=== PATIENT | male | born 1945 | race African-American/Black ===

== ENCOUNTER 2018-05-23 00:28 | Inpatient (IN) ==
[2018-05-23 01:06] LABS: Basophils % 0.4 % (0.0-0.8); Eosinophils # 0.1 10*3/uL (0.0-0.87); Eosinophils % 1.3 % (0.00-10.9); Hematocrit 36.7 VOL% (42.0-52.0); Hemoglobin 11.9 GM/DL (14.0-18.0); Immature Granulocytes % 0.4 %; Immature Granulocytes Absolute 0.02 #; Lymphocytes # 0.9 10*3/uL (1.4-4.0); Lymphocytes % 15.7 % (21.2-54.2); Mean Corpuscular HGB Conc 32.4 GM/DL (32-36); Mean Corpuscular Hemoglobin 31 PG (27-34); Mean Corpuscular Volume 96.1 FL (87-102); Mean Platelet Volume 10.4 FL (9.6-12.0); Monocytes # 0.4 10*3/uL (0.11-0.8); Monocytes % 6.9 % (1.7-12.7); Neutrophils # 4.2 10*3/uL (1.4-7.4); Neutrophils % 75.3 % (38.7-73.9); Platelet Count 164 T/CUMM (130-400); Red Blood Count 3.82 MC/CUMM (3.8-5.5); Red Cell Distribution Width 13.6 % (9.3-17.3); White Blood Count 5.5 T/CUMM (4-12)
[2018-05-23 01:30] LABS: Albumin 3.6 G/DL (3.4-5.0); Bilirubin,Total 0.8 MG/DL (0.2-1.0); Calcium 8.6 MG/DL (8.5-10.1); Potassium 3.9 MMOL/L (3.5-5.1); Total Protein 7.1 G/DL (6.4-8.3)
[2018-05-23] MEDS ORDERED: hydrALAZINE 20 MG/1 ML VIAL IV STA ×2 (01:39→02:52)
[2018-05-23] MEDS ORDERED: LABETALOL 20 MG/4 ML SYRINGE IV STA (01:40)
[2018-05-23] MEDS ORDERED: MORPHINE 4 MG/1 ML VIAL IV PRN (05:20)
[2018-05-23] MEDS ORDERED: hydrALAZINE 20 MG/1 ML VIAL IV PRN (05:20)
[2018-05-23] MEDS ORDERED: ACETAMINOPHEN 325 MG TABLET PO PRN (05:20)
[2018-05-23] MEDS ORDERED: traMADol 50 MG TABLET PO PRN (05:20)
[2018-05-23] MEDS ORDERED: ONDANSETRON 4 MG/2 ML VIAL IV PRN (05:20)
[2018-05-23] MEDS ORDERED: NITROGLYCERIN SL 0.4 MG TABLET SL PRN (05:20)
[2018-05-23 08:06] LABS: Thyroid Stimulating Hormone 3.76 uIU/ml (0.358-3.74)
[2018-05-23] MEDS: FUROSEMIDE 40 MG/4 ML VIAL IV SCH ×2 (08:47→15:59)
[2018-05-23] MEDS: CARVEDILOL 25 MG TABLET PO SCH ×2 (08:47→15:59)
[2018-05-23] MEDS: LISINOPRIL 20 MG TABLET PO SCH (08:47)
[2018-05-23] MEDS: ASPIRIN CHEW 81 MG TABLET PO SCH (08:48)
[2018-05-23] MEDS: ENOXAPARIN 40 MG/0.4 ML SYRINGE SUBCUT SCH (08:48)
[2018-05-23] MEDS: POTASSIUM CHLORIDE 20 MEQ TABLET PO SCH (08:48)
[2018-05-23] MEDS: SPIRONOLACTONE 25 MG TABLET PO SCH (08:48)
[2018-05-23] MEDS ORDERED: ATORVASTATIN 40 MG TABLET PO SCH (21:00)
[2018-05-24 04:13] LABS: Basophils % 0.2 % (0.0-0.8); Eosinophils # 0.1 10*3/uL (0.0-0.87); Eosinophils % 1.7 % (0.00-10.9); Hemoglobin 12.6 GM/DL (14.0-18.0); Immature Granulocytes % 0.2 %; Immature Granulocytes Absolute 0.01 #; Lymphocytes # 1.2 10*3/uL (1.4-4.0); Lymphocytes % 25.7 % (21.2-54.2); Mean Corpuscular HGB Conc 33.2 GM/DL (32-36); Mean Corpuscular Hemoglobin 31 PG (27-34); Mean Corpuscular Volume 93.1 FL (87-102); Mean Platelet Volume 10.6 FL (9.6-12.0); Monocytes # 0.3 10*3/uL (0.11-0.8); Monocytes % 6.7 % (1.7-12.7); Neutrophils # 3.1 10*3/uL (1.4-7.4); Neutrophils % 65.5 % (38.7-73.9); Platelet Count 174 T/CUMM (130-400); Red Blood Count 4.08 MC/CUMM (3.8-5.5); Red Cell Distribution Width 13.8 % (9.3-17.3); White Blood Count 4.8 T/CUMM (4-12)
[2018-05-24 04:35] LABS: Calcium 8.9 MG/DL (8.5-10.1); Osmolality,Calculated 284.1 MOS/KG (273-304); Potassium 3.5 MMOL/L (3.5-5.1)
[2018-05-24 04:39] LABS: Risk Ratio 4.25; VLDL CHOLESTEROL 24.2 MG/DL
[2018-05-24] MEDS: ASPIRIN CHEW 81 MG TABLET PO SCH (08:12)
[2018-05-24] MEDS: FUROSEMIDE 40 MG/4 ML VIAL IV SCH ×2 (08:12→16:50)
[2018-05-24] MEDS: LISINOPRIL 20 MG TABLET PO SCH (08:12)
[2018-05-24] MEDS: CARVEDILOL 25 MG TABLET PO SCH ×2 (08:12→16:50)
[2018-05-24] MEDS: ENOXAPARIN 40 MG/0.4 ML SYRINGE SUBCUT SCH (08:12)
[2018-05-24] MEDS: POTASSIUM CHLORIDE 20 MEQ TABLET PO SCH (08:12)
[2018-05-24] MEDS: SPIRONOLACTONE 25 MG TABLET PO SCH (08:12)
[2018-05-24] MEDS ORDERED: POLYETHYLENE GLYCOL POWDER 17 GM PACK PO PRN (09:57)
[2018-05-24] MEDS: DOCUSATE SODIUM 100 MG CAPSULE PO SCH ×2 (11:34→20:18)
[2018-05-24] MEDS: amLODIPine 5 MG TABLET PO SCH (13:55)
[2018-05-24] MEDS: hydroCHLOROthiazide 25 MG TABLET PO SCH (13:55)
[2018-05-25] MEDS: amLODIPine 5 MG TABLET PO SCH (08:52)
[2018-05-25] MEDS: LISINOPRIL 20 MG TABLET PO SCH (08:52)
[2018-05-25] MEDS: SPIRONOLACTONE 25 MG TABLET PO SCH (08:52)
[2018-05-25] MEDS: DOCUSATE SODIUM 100 MG CAPSULE PO SCH ×2 (08:53→20:03)
[2018-05-25] MEDS: ASPIRIN CHEW 81 MG TABLET PO SCH (08:53)
[2018-05-25] MEDS: FUROSEMIDE 40 MG/4 ML VIAL IV SCH ×2 (08:53→16:23)
[2018-05-25] MEDS: ENOXAPARIN 40 MG/0.4 ML SYRINGE SUBCUT SCH (08:53)
[2018-05-25] MEDS: CARVEDILOL 25 MG TABLET PO SCH ×2 (08:53→16:22)
[2018-05-25] MEDS: POTASSIUM CHLORIDE 20 MEQ TABLET PO SCH (08:53)
[2018-05-25] MEDS: hydroCHLOROthiazide 25 MG TABLET PO SCH (08:56)
[2018-05-25] MEDS: ALBUTEROL/IPRATROPIUM 3 ML NEB RESP TX SCH ×2 (14:01→19:04)
[2018-05-26] MEDS: ALBUTEROL/IPRATROPIUM 3 ML NEB RESP TX SCH ×3 (00:02→13:10)
[2018-05-26] MEDS: DOCUSATE SODIUM 100 MG CAPSULE PO SCH (09:04)
[2018-05-26] MEDS: amLODIPine 5 MG TABLET PO SCH (09:04)
[2018-05-26] MEDS: hydroCHLOROthiazide 25 MG TABLET PO SCH (09:04)
[2018-05-26] MEDS: CARVEDILOL 25 MG TABLET PO SCH (09:04)
[2018-05-26] MEDS: SPIRONOLACTONE 25 MG TABLET PO SCH (09:04)
[2018-05-26] MEDS: POTASSIUM CHLORIDE 20 MEQ TABLET PO SCH (09:04)
[2018-05-26] MEDS: LISINOPRIL 20 MG TABLET PO SCH (09:04)
[2018-05-26] MEDS: FUROSEMIDE 40 MG/4 ML VIAL IV SCH (09:05)
[2018-05-26] MEDS: ASPIRIN CHEW 81 MG TABLET PO SCH (09:05)
[2018-05-26] MEDS: ENOXAPARIN 40 MG/0.4 ML SYRINGE SUBCUT SCH (09:05)
[2018-05-26 12:31] VITALS: BP 123/89
== END 2018-05-26 14:37 | disposition home or self-care (01) | DRG 292 ==
LOC: EDBD → EDUNIT# → N.ED 00:28 → N.EDINP 04:35 → N.4E 05:05
PROVIDERS: ADMIT Internal Medicine; ATTEND Internal Medicine